=== PATIENT | male | born 2000 | race Caucasian/White ===

== ENCOUNTER 2021-06-05 12:57 | Emergency (ER) | payer OTHER ==
[2021-06-05 13:10] VITALS: BP 136/75
--- NOTE | 2021-06-05 13:37 | ED Physician Documentation ---
History of Present Illness - Stated complaint Stated Complaint: HEAD INJ - Chief complaint Chief Complaint: Trauma Hd/Nk - Additonal information Additional information: 20 -year-old male presents to the emergency department for evaluation of a stellate lack on the top of his head. He was carrying a heavy dresser up some stairs when his hand slipped and the door or cabinet came open striking him in the top of his head. There was no loss of consciousness. He is currently on a mission trip. His tetanus is up-to-date. Denies any pertinent past medical problems. Review of Systems Constitutional: denies: Fever Eyes: reports: Reviewed and negative Ears: reports: Reviewed and negative Nose: reports: Reviewed and negative Throat: reports: Reviewed and negative Cardiac: reports: Reviewed and negative Respiratory: reports: Reviewed and negative Skin: reports: Laceration (s) (Stellate laceration on top of occiput.) Musculoskeletal: reports: Reviewed and negative PD PAST MEDICAL HISTORY - Past Medical History Past Medical History: No - Past Surgical History Past Surgical History: No - Present Medications Home Medications: Ambulatory Orders Medication Instructions Recorded Confirmed No Known Home Medications 06/05/21 06/05/21 - Allergies Allergies/Adverse Reactions: Allergies Allergy/AdvReac Type Severity Reaction Status Date / Time No Known Drug Allergies Allergy Verified 06/05/21 13:09 - Social History Does the pt smoke?: No Smoking Status: Never smoker Does the pt drink ETOH?: No Does the pt have substance abuse?: No - Immunizations Immunizations are current?: Yes PD ED PE NORMAL - General General: Alert and oriented X 3, No acute distress - HEENT HEENT: PERRL - Neck Neck: Supple, no meningeal sign - Cardiac Cardiac: RRR, No murmur - Respiratory Respiratory: Clear bilaterally - Abdomen Abdomen: Normal bowel sounds, Soft, Non tender, Non distended - Back Back: No CVA TTP, No spinal TTP - Derm Derm: Normal color, Warm and dry, No rash, Other (4 cm stellate laceration on top of occiupt) - Extremities Extremities: No deformity, No tenderness to palpate, Normal ROM s pain - Neuro Neuro: Alert and oriented X 3, 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, No motor deficit, No sensory deficit, Normal speech Results - Vitals Vitals: Vital Signs - 24 hr 06/05/21 13:07 Temperature 36.9 C Heart Rate 75 Respiratory 16 Rate Blood Pressure 136/75 H O2 Saturation 100 Oxygen O2 Source Room air Procedures - Laceration (location) scalp Length in cm: 4 Wound type: Stellate, Into subcut fat Neurovascular status: Sensory intact Wound preparation: Chlorhexadine, Irrigated copiously NS Skin layer closure: Olga (3 placed) Other: Patient tolerated well, No complications, Dressing applied PD MEDICAL DECISION MAKING - ED course Complexity details: reviewed results, d/w patient ED course: 20-year-old male presents the emergency department for evaluation of a stellate lack on his scalp after being struck in the head when a cabinet door opened while carrying it up the stairs. There was no loss of consciousness. No secondary findings to suggest a basilar skull fracture. Wound was cleaned thoroughly and closed with 3 olga. Routine wound care and emergent return precautions discussed. Tetanus is up-to-date. Departure - Departure Disposition: 01 Home, Self Care Clinical Impression: Occipital scalp laceration Qualifiers: Encounter type: initial encounter Qualified Code(s): S01.01XA - Laceration without foreign body of scalp, initial encounter Condition: Stable Record reviewed to determine appropriate education?: Yes Comments: Your olga should be removed in 5-7 days. In 24 hours you may remove the dressing wash gently with warm soap and water, apply any antibiotic ointment and a simple bandage. Your tetanus is up-to-date. Please attempt to keep your wound clean and dry. Do not submerge it in dirty dishwater or bath water. Return to the emergency department if you have any concerns of infection such as redness, fevers milky drainage increased pain. I expect that you will have a mild headache over the next few days. It is okay to take Tylenol or ibuprofen [id number] for any discomfort. Return to the emergency department if you develop a suddenly severe headache, have uncontrolled vomiting, vision changes slurred speech droopy face.
[2021-06-05] MEDS: IBUPROFEN 600 MG TABLET PO STA (13:39)
[2021-06-05] MEDS: BACITRACIN ZINC OINT 1 PACKET TOP STA (13:39)
== END 2021-06-05 13:46 | disposition home or self-care (01) ==
LOC: ED 12:57
DX: S01.01XA Laceration without foreign body of scalp, initial encounter (principal); W20.8XXA Other cause of strike by thrown, projected or falling object, initial encounter; Y93.89 Activity, other specified; Y92.89 Other specified places as the place of occurrence of the external cause
CPT/HCPCS: 12002; 99282; 99283; A9270

== ENCOUNTER 2021-06-10 18:05 | Emergency (ER) | payer OTHER ==
--- NOTE | 2021-06-10 18:38 | ED Physician Documentation ---
PD HPI WOUND RECHECK - Stated complaint Stated Complaint: STAPLE REMOVAL - Histroy obtained from History obtained from: Patient - History of Present Illness Location: Scalp (top of head) Timing - onset: How many weeks ago (1) Associated symptoms: No: Redness, Swelling, Drainage Recently seen: Emergency Dept Review of Systems Constitutional: denies: Fever, Chills Eyes: denies: Decreased vision Neurologic: denies: Altered mental status, Headache PD PAST MEDICAL HISTORY - Past Medical History Past Medical History: No - Past Surgical History Past Surgical History: No - Present Medications Home Medications: Ambulatory Orders Medication Instructions Recorded Confirmed No Known Home Medications 06/05/21 06/05/21 - Allergies Allergies/Adverse Reactions: Allergies Allergy/AdvReac Type Severity Reaction Status Date / Time No Known Drug Allergies Allergy Verified 06/10/21 18:41 - Social History Does the pt smoke?: No Smoking Status: Never smoker Does the pt drink ETOH?: No Does the pt have substance abuse?: No - Immunizations Immunizations are current?: Yes PD ED PE NORMAL - Vitals Vital signs reviewed: Yes - General General: Alert and oriented X 3, No acute distress, Well developed/nourished - HEENT HEENT: PERRL, EOMI, Other (top of head with healing small lac with 3 olga; no signs of infection. ) - Neck Neck: Supple, no meningeal sign, No adenopathy Results - Vitals Vitals: Vital Signs - 24 hr 06/10/21 18:36 Temperature 36.2 C L Heart Rate 60 Respiratory 14 Rate Blood Pressure 152/89 H O2 Saturation 100 Oxygen O2 Source Room air Procedures - Suture/staple Removal (location) scalp Suture/staple removal: # olga (3), No complications PD MEDICAL DECISION MAKING - ED course Complexity details: considered differential, d/w patient Departure - Departure Disposition: 01 Home, Self Care Clinical Impression: Removal of olga Condition: Stable Record reviewed to determine appropriate education?: Yes Comments: This is healing well without any signs of infection. It is slightly hard and dried at the wound. I would suggest using some ointment such as Vaseline once or twice daily lightly to the area to help soften it as its healing further. Discharge Date/Time: 06/10/21 18:48
[2021-06-10 18:41] VITALS: BP 152/89
== END 2021-06-10 18:48 | disposition home or self-care (01) ==
LOC: ED 18:05
DX: S01.01XD Laceration without foreign body of scalp, subsequent encounter (principal); X58.XXXD Exposure to other specified factors, subsequent encounter
CPT/HCPCS: 99281